=== PATIENT | female | born 1945 | race Asian ===

== ENCOUNTER → 2016-10-19 | Outpatient (CLI) | payer BC | LOC: FIMAGING 10:18 | PROVIDERS: ATTEND Family Medicine | DX: Z13.820 Encounter for screening for osteoporosis (principal); M85.80 Other specified disorders of bone density and structure, unspecified site; Z82.62 Family history of osteoporosis ==

== ENCOUNTER → 2016-10-23 | Outpatient (CLI) | payer BC | LOC: FIMAGING 09:43 | DX: Z12.31 Encounter for screening mammogram for malignant neoplasm of breast (principal) | CPT/HCPCS: G0202 ==

== ENCOUNTER → 2017-10-24 | Outpatient (CLI) | payer BC | LOC: FIMAGING 10:06 | PROVIDERS: ATTEND Family Medicine | DX: Z12.31 Encounter for screening mammogram for malignant neoplasm of breast (principal) ==

== ENCOUNTER → 2018-02-03 | Outpatient (CLI) | payer BC | LOC: FIMAGING 13:12 | PROVIDERS: ATTEND Family Medicine | DX: M80.08XA Age-related osteoporosis with current pathological fracture, vertebra(e), initial encounter for fracture (principal); Z78.0 Asymptomatic menopausal state ==

== ENCOUNTER → 2018-10-27 | Outpatient (CLI) | payer BC | LOC: FIMAGING 12:11 ==